=== PATIENT | male | born 1985 | race Two or more races ===

== ENCOUNTER 2018-08-18 13:02 | Outpatient (CLI) | payer OTHER ==
[~2018-08-18 13:02] MED LIST: FIORICET 50-321 EACH PO
== END 2018-08-18 14:20 | disposition home or self-care (01) ==
LOC: LAB 13:02
DX: R50.9 Fever, unspecified (principal); J11.1 Influenza due to unidentified influenza virus with other respiratory manifestations

== ENCOUNTER → 2019-07-28 18:09 | Outpatient (CLI) | payer OTHER | END | disposition home or self-care (01) | LOC: RAD 18:09 | DX: M25.561 Pain in right knee (principal) ==

== ENCOUNTER 2019-09-02 10:05 | Outpatient (CLI) | payer OTHER | END 2019-09-02 10:16 | disposition home or self-care (01) | LOC: LAB 10:05 | DX: R10.84 Generalized abdominal pain (principal); R19.5 Other fecal abnormalities ==

== ENCOUNTER 2019-10-12 14:55 | Outpatient (CLI) | payer OTHER | END 2019-10-12 14:58 | disposition home or self-care (01) | LOC: LAB 14:55 | DX: R19.5 Other fecal abnormalities (principal) ==